=== PATIENT | female | born 1985 | race Caucasian/White ===

== ENCOUNTER 2020-08-03 08:13 | Inpatient (IN) ==
[2020-08-03] MEDS ORDERED: Famotidine 20 MG/2 ML VIAL IVP ONE (08:35)
[2020-08-03] MEDS ORDERED: Metoclopramide 10 MG/2 ML VIAL IVP ONE (08:35)
[2020-08-03] MEDS ORDERED: CeFAZolin 2,000 MG/50 ML BAG IVPB ONE (08:35)
[2020-08-03] MEDS ORDERED: Oxytocin 20 units/ LR 1000 mL 20 UNIT/1,000 ML BAG IVC ONE (08:35)
[2020-08-03] MEDS ORDERED: Ringers Solution, Lactated 1,000 ML IVC ONE (08:35)
[2020-08-03] MEDS ORDERED: Ringers Solution, Lactated 1,000 ML ONE (08:38)
[2020-08-03] MEDS ORDERED: Ringers Solution, Lactated 1,000 ML IVC SCH (08:45)
[2020-08-03] MEDS ORDERED: Oxytocin 20 units/ LR 1000 mL 20 UNIT/1,000 ML BAG IVC SCH ×2 (08:45→15:16)
[2020-08-03 09:32] LABS: Basophils % 0.3 %; Eosinophils # 0.1 K/mcL (0.0-0.6); Eosinophils % 0.4 %; Hematocrit 37.3 % (35.3-44.9); Hemoglobin 11.7 g/dL (11.5-15.4); Immature Granulocytes % 0.7 % (0-4); Lymphocytes # 1.6 K/mcL (0.6-4.6); Lymphocytes % 14.2 %; Mean Corpuscular HGB Conc 31.4 g/dL (31.6-35.5); Mean Corpuscular Hemoglobin 28.7 pg (28.0-33.3); Mean Corpuscular Volume 91.6 fL (83.0-100.0); Mean Platelet Volume 9.5 fL (9.4-12.4); Monocytes # 0.6 K/mcL (0.0-1.3); Monocytes % 4.9 %; Neutrophils # 9.2 K/mcL (1.6-8.9); Platelet Count 260 K/mcL (140-400); Red Blood Count 4.07 M/mcL (3.82-4.97); Segmented Neutrophils % 79.5 %; White Blood Count 11.6 K/mcL (4.3-11.1)
[2020-08-03 09:41] LABS: Amphetamine Screen,Urine Negative ng/mL (Cutoff=1000); Barbiturate Screen,Urine Negative ng/mL (Cutoff=200); Benzodiazepines Screen,Urine Negative ng/mL (Cutoff=200); Cannabinoid Screen,Urine Negative ng/mL (Cutoff = 50); Cocaine Screen,Urine Negative ng/mL (Cutoff= 300); Opiate Screen,Urine Negative ng/mL (Cutoff=300); Phencyclidine Screen,Urine Negative ng/mL (Cutoff=25)
[2020-08-03] MEDS ORDERED: *HR* Morphine Sulfate/PF 10 MG/10 ML AMPUL ONE (10:58)
[2020-08-03] MEDS ORDERED: *HR* FentaNYL (PF) 100 MCG/2 ML VIAL ONE (10:58)
[2020-08-03] MEDS ORDERED: Ondansetron 4 MG/2 ML VIAL ONE (11:43)
[2020-08-03] MEDS ORDERED: Acetaminophen IV 1,000 MG/100 ML BAG IVPB ONE (11:57)
[2020-08-03] MEDS ORDERED: Ondansetron 4 MG/2 ML VIAL IVP PRN ×2 (12:14→15:16)
[2020-08-03] MEDS ORDERED: *HR* FentaNYL (PF) 100 MCG/2 ML VIAL IVP PRN (12:14)
[2020-08-03] MEDS ORDERED: *HR* OxyCODONE Immed Rel 5 MG TABLET PO PRN ×2 (12:14→15:16)
[2020-08-03] MEDS ORDERED: Ibuprofen 600 MG TABLET PO PRN (15:16)
[2020-08-03] MEDS ORDERED: Metoclopramide 10 MG/2 ML VIAL IVP PRN (15:16)
[2020-08-03] MEDS ORDERED: 0.9 % Sodium Chloride 1,000 ML IVC SCH (15:16)
[2020-08-03] MEDS ORDERED: Sennosides 8.6 MG TABLET PO PRN (15:16)
[2020-08-03] MEDS ORDERED: Acetaminophen 325 MG TABLET PO PRN (15:16)
[2020-08-03] MEDS ORDERED: Simethicone 80 MG TAB.CHEW PO PRN (15:16)
[2020-08-03] MEDS ORDERED: Naloxone 0.4 MG/ML INJ IVP PRN (15:16)
[2020-08-04 03:43] LABS: Basophils # 0.1 K/mcL (0.0-0.2); Basophils % 0.4 %; Eosinophils # 0.1 K/mcL (0.0-0.6); Eosinophils % 0.5 %; Hematocrit 35.5 % (35.3-44.9); Hemoglobin 11.5 g/dL (11.5-15.4); Immature Granulocytes % 0.5 % (0-4); Lymphocytes # 1.6 K/mcL (0.6-4.6); Lymphocytes % 12.4 %; Mean Corpuscular HGB Conc 32.4 g/dL (31.6-35.5); Mean Corpuscular Hemoglobin 29.9 pg (28.0-33.3); Mean Corpuscular Volume 92.2 fL (83.0-100.0); Mean Platelet Volume 9.2 fL (9.4-12.4); Monocytes # 0.7 K/mcL (0.0-1.3); Monocytes % 5.2 %; Neutrophils # 10.5 K/mcL (1.6-8.9); Platelet Count 214 K/mcL (140-400); Red Blood Count 3.85 M/mcL (3.82-4.97); Red Cell Distribution Width 14.3 % (11.5-14.5)
[2020-08-04 07:56] VITALS: BP 107/64
[2020-08-04] MEDS ORDERED: Prenatal Vit/FA 1 EACH TABLET PO SCH (09:00)
[2020-08-04] MEDS ORDERED: NON-FORMULARY MEDICATION 1 EACH EACH (Prenatal Tablet 1 TAB) PO SCH (09:00)
== END 2020-08-04 13:08 | disposition home or self-care (01) | DRG 788 ==
LOC: 1NENULAB 08:13 → 1NENUOBS 15:03
PROVIDERS: ADMIT Obstetrics & Gynecology; ATTEND Obstetrics & Gynecology